=== PATIENT | male | born 1970 | race Caucasian/White ===

== ENCOUNTER 2020-05-25 18:39 | Emergency (ER) | payer MEDICAID ==
[~2020-05-25] VITALS: Ht 162.6 cm; Wt 91.6 kg
[~2020-05-25 18:39] MED LIST: PRI20 PO
[2020-05-25 19:14] VITALS: Ht 162.6 cm; Wt 91.6 kg
[2020-05-25 23:43] LABS: microscopic required? NO
[2020-05-26 00:01] LABS: CALCIUM 9.2 mg/dL (8.5-10.1); CARBON DIOXIDE 25.3 mmol/L (21-32); CHLORIDE SERUM 101 mmol/L (98-107); GFR1 > 60 mL/min; GLUCOSE SERUM 102 mg/dL (74-106); POTASSIUM SERUM 3.3 mmol/L (3.5-5.1); SODIUM SERUM 140 mmol/L (136-145)
[2020-05-26 00:05] LABS: ALBUMIN 4.2 g/dL (3.4-5.0); ALKALINE PHOSPHATASE 108 U/L (46-116); BILIRUBIN TOTAL 0.3 mg/dL (0.20-1.00); TOTAL PROTEIN, SERUM 7.7 g/dL (6.4-8.2)
[2020-05-26 00:07] LABS: BASOPHIL % 0.6 % (0-2); PLATELET COUNT 220 x10^3mcL (130-400); RED CELL DISTRIBUTION WIDTH 13.3 % (11.5-14.5)
[2020-05-26 00:10] LABS: UA SPECIFIC GRAVITY >=1.030 (1.005-1.035); urine erythrocyte NEGATIVE (NEGATIVE)
[2020-05-26 00:25] LABS: ALT/SGPT 79 U/L (16-63); AST/SGOT 61 U/L (15-37)
[2020-05-26 07:05] VITALS: BP 123/81
== END 2020-05-26 07:05 | disposition home or self-care (01) ==
LOC: ED 18:39
PROVIDERS: Emergency Medicine
DX: U07.1 COVID-19 (principal); M54.5 Low back pain; R30.0 Dysuria
CPT/HCPCS: J0696; J3370; J7050; J7060; Q0092; Q9967; U0003-CS